=== PATIENT | female | born 1995 | race American Indian/Alaskan Native ===

== ENCOUNTER 2021-02-23 20:51 | Outpatient (CLI) | payer BC, MEDICAID ==
[2021-02-23] MEDS ORDERED: ACETAMINOPHEN 325 MG TAB PO ONE (22:16)
[2021-02-23] MEDS ORDERED: LACTATED RINGERS 1,000 ML IV ONE (22:17)
[2021-02-23] MEDS ORDERED: LACTATED RINGERS 1,000 ML ONE (22:24)
[2021-02-24 00:03] VITALS: BP 116/70
== END 2021-02-24 02:04 | disposition home or self-care (01) ==
LOC: TRG 20:51 → APU 21:06 → TRG 02-24 02:04
PROVIDERS: ATTEND Obstetrics & Gynecology
DX: O62.9 Abnormality of forces of labor, unspecified (principal); O26.893 Other specified pregnancy related conditions, third trimester; R10.9 Unspecified abdominal pain; M54.9 Dorsalgia, unspecified; Z3A.37 37 weeks gestation of pregnancy
CPT/HCPCS: 59025; 96360